=== PATIENT | female | born 1950 | race Hispanic/Latino ===

== ENCOUNTER → 2018-10-28 | Outpatient (CLI) | payer MEDICARE, OTHER ==
--- NOTE | 2018-10-28 13:02 | Diagnostic Imaging Report ---
EXAMINATION: PA and lateral views of the chest. COMPARISON: None CLINICAL HISTORY: Asthma, dyspnea DISCUSSION: Lungs are well-inflated. No focal consolidation, pleural effusion, or pneumothorax. Mild prominence of the perihilar pulmonary interstitium. Heart size is normal tortuosity of the thoracic aorta. No acute osseous abnormality. Mild multilevel degenerative disc changes of the thoracic spine. Surgical clips project over the right upper quadrant of the abdomen likely related to prior cholecystectomy. IMPRESSION: Perihilar interstitial prominence may be seen in the setting of reactive airways disease. No consolidative pneumonia. Signed by: Dr. Emiliano Stephenson M.D. on 10/28/2018 12:59 PM
== END ==
LOC: RAD 11:49
PROVIDERS: ATTEND Specialist
DX: J45.909 Unspecified asthma, uncomplicated (principal)
CPT/HCPCS: 71046